=== PATIENT | female | born 2000 | race Two or more races ===

== ENCOUNTER 2024-06-27 22:04 | Emergency (ER) | payer MEDICAID, SELFPAY ==
[2024-06-27 22:05] VITALS: BMI 43.0
[2024-06-27 22:59] VITALS: BP 115/74; PULSE 106; RESP 20; TEMP 37.3; O2SAT 99
--- NOTE | 2024-06-27 23:20 | XR_ITS ---
Examination: CT soft tissue neck, with intravenous contrast. 2-D coronal reconstructions. 2-D sagittal reconstructions. Date and time of exam :June 28, 2024 0327 hrs. Indications: Onset left-sided neck pain today. CTDI: vol (mGy):14.6 DLP: (mGycm):325 Technique: 1.25 mm axial sections of the neck of the obtained. Coronal and sagittal reconstructions have been obtained. Intravenous contrast administered 60 cc Isovue-370. Low dose protocols were performed. One or more of the following dose reduction techniques were used; automated exposure control, adjustment of the mA and/or KV according to patient size, use of iterative reconstruction technique. Findings: Significant maxillary sinus disease Mild soft tissue tonsillar prominence no abscess Symmetrical submandibular glands No pathologic cervical lymphadenopathy Normal larynx The thyroid glands are not enlarged Normal epiglottis Impression: Mild soft tissue tonsillar prominence
--- NOTE | 2024-06-27 23:20 | XR_ITS ---
Examination: CT abdomen with intravenous contrast CT pelvis with intravenous contrast 2-D coronal reconstructions 2-D sagittal reconstructions Date and time of exam:June 28, 2024 0331 hrs. Indications: Onset left-sided abdominal pain beginning 2 weeks ago. CTDI: vol (mGy) 25.7 DLP: (mGycm) 1495 Technique: Multiple axial sections of the abdomen and pelvis have been obtained. 64 slice high-resolution scanner used. 3 mm axial sections have been obtained, post intravenous injection 60 cc Isovue-370 2-D sagittal, coronal reconstructions obtained. Low dose protocols were performed. One or more of the following dose reduction techniques were used; automated exposure control, adjustment of the mA and/or KV according to patient size, use of iterative reconstruction technique. Findings: No focal liver or splenic lesions No gallstones No pancreatic or adrenal mass No renal or ureteral calculi, no hydronephrosis Normal appendix No bowel obstruction This is not a CTA study for assessment of contrast extravasation Mild fluid in the pelvis No bladder mass Impression: No renal or ureteral calculi, no hydronephrosis Normal appendix No bowel obstruction or diverticulitis
--- NOTE | 2024-06-27 23:43 | EDNOTE_ITS ---
ED Back Injury Pain RME/HPI General Chief Complaint: Back Pain/Injury Stated Complaint: LT FLANK/JAW PAIN Time Seen by Provider: 06/27/24 23:19 Arrival date/time: 06/27/24 22:04 24F with history of kidney stones presents to ED with 3 days of L flank pain. Patient denies N/V, dysuria/hematuria, and vaginal bleeding. Separately, 1 day of L neck swelling/tenderness, but denies URI symptoms. Separately, patient has had 3 months of gross red bloody in stool. Limitations: no limitations Related Data Previous Rx's ?Medication ?Instructions ?Recorded ibuprofen 600 mg tablet 600 mg PO Q8H PRN pain #20 t abs 06/16/22 tamsulosin 0.4 mg capsule (Flomax) 0.4 mg PO QDAY #14 caps 06/16/22 ondansetron HCl 4 mg tablet 4 mg PO TID PRN nausea and 07/14/22 vomiting #14 tabs diphenhydramine HCl 25 mg capsule 25 mg PO Q8H PRN all ergic symptoms 11/03/22 (Benadryl) #30 caps amoxicillin 875 mg-potassium 1 tab PO BID 7 days #14 t abs 06/28/24 clavulanate 125 mg tablet hydrocortisone 2.5 % topical cream 1 applic PA QDAY PA N hemorrhoids 06/28/24 with perineal applicator #30 grams (Anusol-HC) Allergies Allergy/AdvReac Type Severity Reaction Status Date / Time No Known Allergies Allergy Verified 02/11/23 18:32 Review of Systems Review of Systems Systems Reviewed: All systems reviewed, normal except as documented Constitutional Constitutional: Reports system reviewed and no additional complaints, except as documented, Denies fever(s) and Denies headache(s) ENT Ears, Nose, Mouth, and Throat: Reports as per HPI, Denies disequilibrium, Denies headache(s) and Reports neck mass Cardiovascular Cardiovascular: Reports system reviewed and no additional complaints, except as documented, Denies chest pain and Denies dyspnea Respiratory Respiratory: Reports system reviewed and no additional complaints, except as documented, Denies cough and Denies dyspnea Gastrointestinal Gastrointestinal: Reports system reviewed and no additional complaints, except as documented, Reports as per HPI, Denies abdominal pain, Reports hematochezia, Denies nausea and Denies vomiting Musculoskeletal Musculoskeletal: Reports as per HPI and Reports back pain Neurologic Neurologic: Reports system reviewed and no additional complaints, except as documented, Denies confusion, Denies disequilibrium and Denies headache(s) Psychiatric Psychiatric: Denies confusion ED Exam General Limitations: Present no limitations General appearance: Present alert and in no apparent distress Head Head exam: Present atraumatic Eye Eye exam: Present normal appearance, PERRL and EOMI ENT ENT exam: Present normal exam, normal oropharynx and mucous membranes moist Neck Neck exam: Present normal inspection, full ROM and trachea midline Chest Chest inspection: Present normal inspection and symmetric chest wall rise Respiratory Respiratory exam: Present normal lung sounds bilaterally Cardiovascular Cardiovascular exam: Present regular rate, normal rhythm and normal heart sounds Abdominal Exam Abdominal exam: Present soft and normal bowel sounds Rectal Exam Rectal exam: Present hemorrhoids Extremities Exam Extremities exam: Present normal inspection and full ROM Back Exam Back exam: Present normal inspection and full ROM Neurological Exam Neurological exam: Present alert, oriented X3 and CN II-XII intact Psychiatric Psychiatric exam: Present normal affect and normal mood Skin Skin exam: Present warm, dry, intact and normal color Course Quality Measures none Orders Category Date Time Status CT Screening NOW Care 06/27/24 23:20 Active Insert IV NOW Care 06/27/24 23:20 Active Occult Blood,Stool (Nursing) NOW Care 06/27/24 23:47 Active Occult Blood,Stool (Nursing) NOW Care 06/28/24 00:[address] abdomen pelvis w con Stat Exams 06/27/24 23:[address] soft tissue neck w con Stat Exams 06/27/24 23:20 Taken CBC Stat Lab 06/27/24 23:47 Completed CMP [Comprehensive Metabolic Panel] Stat Lab 06/27/24 23:47 Completed HCG Qualitative,Urine Stat Lab 06/27/24 23:52 Completed Lactate (Lactic Acid) Stat Lab 06/27/24 23:47 Completed Lipase Stat Lab 06/27/24 23:47 Completed Occult Blood, Stool (LAB) Stat Lab 06/27/24 23:55 Completed Procalcitonin Stat Lab 06/27/24 23:47 Completed Urinalysis, C/S if Indicated Stat Lab 06/27/24 23:52 Completed Ampicillin/Sulbac Inj [Unasyn Inj] 3 gm Med 06/28/24 05:21 Discontinued Sodium Chloride 0.9% (Pop) [NS 0.9% mini bag] 100 ml IV X1 Ketorolac Inj [Toradol Inj] Med 06/28/24 01:41 Discontinued 30 mg IVP X1 ONE Vital Signs Vital signs: Vital Signs Temperature 99.1 F 06/27/24 22:59 Pulse Rate 106 H 06/27/24 22:59 Respiratory Rate 20 06/27/24 22:59 Blood Pressure 115/74 06/27/24 22:59 Pulse Oximetry (%) 99 06/27/24 22:59 Oxygen Delivery Method Room Air 06/27/24 22:59 O2 at 99% on RA and WNLs Back Pain / Injury MDM Narrative MDM Narrative:: 24F with history of kidney stones presents to ED with 3 days of L flank pain. Patient denies N/V, dysuria/hematuria, and vaginal bleeding. Separately, 1 day of L neck swelling/tenderness, but denies URI symptoms. Separately, patient has had 3 months of gross red bloody in stool. Physical exam with forensic identification specialist reveals small external hemorrhoid, but no flank tenderness. Internal exam unremarkable. Patient is afebrile, calm, and alert. Occult blood negative (possible false neg). Moderate leukocytosis of 16k. No an emia. CMP unremarkable. Lipase normal. Procal/lactate normal. UA contaminated but no dehydration, blood, or gross UTI. HCG neg. Ct ab/pelvics reveals some proctitis. CT neck reveal mild tonsillitis but prominent cervical lymph nodes. Counseled will trial course of ABX that should treat both if infections etiology. Counseled if symptoms persist, follow-up with PCP for additional evaluation such as monitoring/biopsy/referral/colonoscopy. Patient data External records reviewed:: [facility] previous records Clinical information provided by:: patient Social determinants that could affect healthcare access:: none Patient has the following chronic illnesses:: none How is presenting disease/condition affected by chronic disease/condition?: no chronic disease Evaluation data The following diagnostics were reviewed and interpreted by me:: lab results and radiology exam(s) Lab and/or radiology exams considered but not ordered:: ordered Interpretation Summary: above Medications / Prescriptions Medications or Prescriptions considered but not ordered:: not ordered Medication administrations:: Medication Administration History Discontinued Medications Ampicillin Sodium/Sulbactam (Sodium 3 gm/ Sodium Chloride) 100 mls @ 200 mls/hr IV X1 ONE Stop: 06/28/24 05:22 Last Admin: 06/28/24 05:35 Dose: 200 mls/hr Documented By: EF Ketorolac Tromethamine (Ketorolac Inj 30 Mg/Ml Vial) 30 mg IVP X1 ONE Stop: 06/28/24 01:42 Last Admin: 06/28/24 01:48 Dose: 30 mg Documented By: ANA n/a Consultations Consultation(s) initiated? (list below): No Diagnosis Differential diagnosis back pain/injury: lumbar radiculopathy, sciatica, strain of lumbar region, renal colic, pyelonephritis, thoracic back pain, AAA, discitis and other (kidney stone, blood in stool, IBD, colon cancer, hemorrhoids, proctit is, cervical adenopathy, tonsillitis) Most likely diagnosis given after review of the tests above:: hemorrhoids, proctitis, cervical adenopathy, tonsillitis Admission Indicated Admission indicated?: not indicated Admission Request Was there a request for admission?: No Disposition Plan Disposition Plan: Discharge Discharge Attestation Discharge Attestation: The patient and all family members were given an opportunity to ask questions and understood the discharge instructions. Discharge instructions specifically effects, indications for sooner follow up or return to the emergency department, and the expected course of current diagnosis. Patient condition: Stable Discharge Plan Plan Patient Disposition: HOME (Self Care) Disposition Comment: Stable Prescriptions/Referrals Prescriptions/Med Rec: New hydrocortisone [Anusol-HC] 2.5 % cream with perineal applicator 1 applic PA QDAY PRN (Reason: hemorrhoids) Qty: 30 0RF amoxicillin-pot clavulanate 875-125 mg tablet 1 tab PO BID 7 Days Qty: 14 0RF No Action ondansetron HCl 4 mg tablet 4 mg PO TID PRN (Reason: nausea and vomiting) Qty: 14 0RF tamsulosin [Flomax] 0.4 mg capsule 0.4 mg PO QDAY Qty: 14 0RF ibuprofen 600 mg tablet 600 mg PO Q8H PRN (Reason: pain) Qty: 20 0RF diphenhydramine HCl [Benadryl] 25 mg capsule 25 mg PO Q8H PRN (Reason: allergic symptoms) Qty: 30 0RF Referrals: No Primary/Family,Physician [Primary Care Provider] - In 1 week Problem List Clinical Impression: Acute tonsillitis, Proctitis, Hemorrhoids, Cervical adenopathy Patient/Caregiver Discharge Instructions Education Materials: Tonsillitis in Adults, Lymphadenopathy, Understanding Colitis, ED Hemorrhoids Additional Instructions: Please follow-up with PCP within 24-48 hours and return immediately if symptoms worsen. If after AB treatment, still have red blood in stool and hemorrhoid treatment isn't working, see PCP for referral to GI. If neck swelling persists after treatment, see PCP for additional monitoring and evaluation. Print Language: Faroese Stand Alone Forms: Patient Portal Info Letter PA/NADER Supervising Physician LOREN/NADER Supervising Physician: Dr. Covarrubias
[2024-06-27 23:58] LABS: Collection Type, Urine Clean Catch
[2024-06-28 00:04] LABS: Lactate (Lactic Acid) 1.8 mMol/L (0.4-2.0)
[2024-06-28 00:10] LABS: HCG Qualitative,Urine Negative
[2024-06-28 00:10] LABS: OBS Performed By PINOR; OBS QC OK? Yes; Occult Blood, Stool Negative (Negative)
[2024-06-28 00:14] LABS: Basophils % (Auto) 0 % (0-2.5); Eosinophils % (Auto) 0 % (0-10); Hematocrit 37.3 % (36.0-46.0); Hemoglobin 12.1 g/dL (12.0-16.0); Immature Granulocytes % (Auto) 1 % (0-0); Immature Granulocytes Auto 0.09 Thou/mm3 (0.00-0.00); Lymphocytes % (Auto) 26 % (10-50); Mean Corpuscular HGB Conc 32.4 g/dl (31.0-37.0); Mean Corpuscular Hemoglobin 25.9 pg (25.0-35.0); Mean Corpuscular Volume 80 fL (80-100); Monocytes # (Auto) 0.8 Thou/mm3 (0.0-0.8); Monocytes % (Auto) 5 % (0-12); Neutrophils # (Auto) 10.7 Thou/mm3 (1.8-7.7); Neutrophils % (Auto) 68 % (37-80); Nucleated Red Blood Cell % 0 /100 WBC (0); Platelet Count 343 Thou/mm3 (140-440); RDW Standard Deviation 42.5 fL (36.4-46.3); Red Blood Count 4.67 Miln/mm3 (4.00-5.20); White Blood Count 15.7 Thou/mm3 (3.6-11.0)
[2024-06-28 00:19] LABS: Bacteria,Urine Rare; Bilirubin,Urine Negative (Negative); Blood,Urine Negative (Negative); Calcium Oxalate Crystals,Urine Rare; Clarity,Urine Clear (Clear/Hazy); Color,Urine Lt-Yellow (Lt Yel-Yel); Culture Indicated,Urine Not Indicated; Glucose, Urine Negative (Negative); Ketones,Urine Negative (Negative); Leukocyte Esterase,Urine Negative (Negative); Nitrite,Urine Negative (Negative); Protein,Urine Trace (Neg - Trace); RBC,Urine < 1 /hpf (0-3); Specific Gravity,Urine 1.031 (1.001-1.035); Squamous Epithelial Cell,Urine 14 /hpf (0-5); Urobilinogen,Urine Negative mg/dL (0.0-1.0); WBC,Urine 1 /hpf (0-5)
[2024-06-28 00:38] LABS: Alanine Aminotransferase 19 U/L (10-49); Albumin, Serum 4.9 gm/dL (3.5-5.0); Albumin/Globulin Ratio 1.4 (1.2-2.2); Alkaline Phosphatase 101 U/L (46-116); Anion Gap 10 (7-16); Aspartate Amino Transferase 30 U/L (0-34); BUN/Creatinine Ratio 13 Ratio (12-20); Bilirubin,Total 0.3 mg/dL (0.3-1.2); Blood Urea Nitrogen 10 mg/dL (9-23); Calcium 9.8 mg/dL (8.3-10.6); Calcium (Corrected) 9.8 mg/dL (8.5-10.1); Carbon Dioxide 25.4 mMol/L (20.0-31.0); Chloride 106 mMol/L (98-107); Creatinine (Component) 0.8 mg/dL (0.6-1.3); Estimated Creatinine Clearance 116.1 mL/min (>60); Globulin 3.5 gm/dL (2.3-3.5); Glucose 124 mg/dL (74-106); Lipase 37 U/L (12-53); Osmolality,Calculated 281 (275-295); Potassium 3.4 mMol/L (3.4-5.1); Procalcitonin < 0.04 ng/ml (0.0-0.49); Sodium 141 mMol/L (136-145); Total Protein 8.4 gm/dL (5.7-8.2); eGFR > 60 See Note
[2024-06-28 00:57] VITALS: BP 97/70; PULSE 88; RESP 18; TEMP 37.1; O2SAT 98
[2024-06-28] MEDS: KETOROLAC INJ 30 MG/ML VIAL IVP (01:48)
[2024-06-28 02:24] VITALS: BP 117/80; PULSE 88; RESP 18; TEMP 36.6; O2SAT 100
--- NOTE | 2024-06-28 04:54 | PRELIM_ITS ---
CT scan of the neck with intravenous contrast (axial sections with sagittal and coronal reformats) June 28, 2024 0327 hours Clinical History: Left neck swelling. Comparison: No prior study is available for comparison. Findings: There is mild enlargement of the palatine tonsils. No airway narrowing or loculated fluid collection to suggest abscess. There are prominent deep cervical lymph nodes, the largest measuring 1.1 cm on the left. The nasopharynx, hypopharynx, supraglottic and infraglottic larynx, vocal cords and upper trachea are unremarkable. The epiglottis and aryepiglottic folds appear unremarkable. No enhancing lesion or fluid collection is identified. The vessels of the neck are well opacified. No filling defect is seen. The superficial soft tissues of the neck are unremarkable. The osseous structures are unremarkable. Impression: 1. No evidence of neck mass or abscess. 2. Findings suggestive of mild tonsillitis. Recommend clinical correlation. 3. Prominent deep cervical lymph nodes. Report Electronically Signed By: Seb Ferraro 06/28/2024 4:54:13 AM [EST]
--- NOTE | 2024-06-28 04:56 | PRELIM_ITS ---
CT scan of the abdomen and pelvis with intravenous contrast (axial sections with sagittal and coronal reformats) June 28, 2024 0331 hours Clinical History: Left sided abdominal pain; bloody stools 3 months. Comparison: No prior study is available for comparison. Findings: The evaluation is limited due to single delayed phase. The lung bases are clear. The liver, gallbladder, pancreas, spleen, kidneys and adrenals are unremarkable. No contrast extravasation in the stomach, small or large bowel loops to suggest active gastrointestinal hemorrhage at the time of examination. No evidence of bowel obstruction. The appendix is within normal limits. There is mild rectal wall thickening with perirectal fat stranding. The urinary bladder is unremarkable. The uterus and adnexa are unremarkable. There is no free air. Trace free fluid is seen in the pelvis, likely physiologic. Calcific densities are seen in the pelvis, likely representing phleboliths. There is an 8 mm left Bartholin gland cyst. The osseous structures are unremarkable. Impression: Limited evaluation as described. 1. No evidence of bowel obstruction, mass, free air or abscess. 2. No contrast extravasation to indicate gastrointestinal hemorrhage at the time of examination ( limited single phase delayed imaging) 3. Findings suggestive of mild proctitis. 4. Other findings as described above. Report Electronically Signed By: Seb Ferraro 06/28/2024 4:55:12 AM [EST]
[2024-06-28 05:03] VITALS: BP 121/78; PULSE 95; RESP 16; TEMP 36.6; O2SAT 99
[2024-06-28] MEDS: AMPICILLIN/SULBAC INJ 3 GM in SODIUM CHLORIDE 0.9% (POP) 100 ML IV (05:35)
[2024-06-28 06:36] VITALS: BP 106/70; PULSE 87; RESP 17; TEMP 36.8; O2SAT 99
== END 2024-06-28 06:37 | disposition home or self-care (01) ==
PROVIDERS: Physician Assistant; Emergency Provider Emergency Medicine
DX: J03.90 Acute tonsillitis, unspecified (principal); K64.9 Unspecified hemorrhoids; R59.0 Localized enlarged lymph nodes
CPT/HCPCS: 36415; 70491; 74177; 80053; 81001; 81025; 82270; 83605; 83690; 84145; 85025; 96365; 96375; 99285; A4649; J0295; J1885; Q9967

== ENCOUNTER 2024-07-31 08:20 | Day surgery (SDC) | payer MEDICAID, SELFPAY ==
[2024-07-30 11:59] VITALS: BMI 45.3
[2024-07-31] VITALS (11 sets, daily range): BP systolic 108–127; BP diastolic 64–89; PULSE 72–89; RESP 15–21; TEMP 36.3–36.8; O2SAT 96–100; BMI 43.8
[2024-07-31 09:24] LABS: HCG Qualitative,Urine Negative
[2024-07-31] MEDS: RINGERS LACTATED 1000 ML 1,000 ML 125 ML IV (11:08)
[2024-07-31] MEDS: DiphenhydrAMINE INJ 50 MG/ML VIAL 25 MG IV (11:08)
[2024-07-31] MEDS: fentaNYL CIT INJ 50 mCg/ML AMP 2ML (ASD USE ONLY) IV (11:10)
[2024-07-31] MEDS: MIDAZOLAM INJ 1 MG/ML VIAL 2 ML (ASD USE ONLY) 2 MG IV (11:15)
== END 2024-07-31 12:30 | disposition home or self-care (01) ==
PROVIDERS: PCP Family Medicine; Referring Provider Internal Medicine Gastroenterology; Visit Provider Internal Medicine Gastroenterology
PROC: 0DBE8ZX Excision of Large Intestine, Via Natural or Artificial Opening Endoscopic, Diagnostic (ICD-10-PCS; CPT 45380; principal; 2024-07-31 09:45)
DX: K52.9 Noninfective gastroenteritis and colitis, unspecified (principal); K64.8 Other hemorrhoids; K31.89 Other diseases of stomach and duodenum
CPT/HCPCS: 45380; 81025; J1200; J2250; J3010; J7120

== ENCOUNTER 2024-12-30 19:33 | Emergency (ER) | payer MEDICAID, SELFPAY ==
[2024-12-30 19:33] VITALS: BMI 40.6
[2024-12-30 20:34] VITALS: BP 108/76; PULSE 78; RESP 16; TEMP 37; O2SAT 98
--- NOTE | 2024-12-30 20:45 | EDRME_ITS ---
Rapid Medical Screening Exam [facility] Arrival date/time: 12/30/24 19:33 24F with history of marijuana use presents to ED with 1 day of RUQ/epigastric pain and N/V. Patient denies dysuria, diarrhea, and is not on her cycle. Chief Complaint: Abdominal Pain Vital signs: Vital Signs Temperature 98.6 F 12/30/24 20:34 Pulse Rate 78 12/30/24 20:34 Respiratory Rate 16 12/30/24 20:34 Blood Pressure 108/76 12/30/24 20:34 Pulse Oximetry (%) 98 12/30/24 20:34 Oxygen Delivery Method Room Air 12/30/24 20:34
[2024-12-30 21:09] LABS: Collection Type, Urine Clean Catch
[2024-12-30 21:11] LABS: Basophils # (Auto) 0.0 Thou/mm3 (0.0-0.2); Basophils % (Auto) 0 % (0-2.5); Eosinophils # (Auto) 0.0 Thou/mm3 (0.0-0.5); Eosinophils % (Auto) 0 % (0-10); Hematocrit 35.5 % (36.0-46.0); Hemoglobin 11.7 g/dL (12.0-16.0); Immature Granulocytes Auto 0.01 Thou/mm3 (0.00-0.00); Lymphocytes # (Auto) 3.0 Thou/mm3 (1.0-4.8); Lymphocytes % (Auto) 32 % (10-50); Mean Corpuscular HGB Conc 33.0 g/dl (31.0-37.0); Mean Corpuscular Hemoglobin 26.5 pg (25.0-35.0); Mean Corpuscular Volume 81 fL (80-100); Monocytes # (Auto) 0.6 Thou/mm3 (0.0-0.8); Monocytes % (Auto) 7 % (0-12); Neutrophils # (Auto) 5.8 Thou/mm3 (1.8-7.7); Neutrophils % (Auto) 61 % (37-80); Nucleated Red Blood Cell # 0.00 Thou/mm3 (0.00-0.00); Nucleated Red Blood Cell % 0 /100 WBC (0); Platelet Count 392 Thou/mm3 (140-440); RDW Standard Deviation 42.6 fL (36.4-46.3); Red Blood Count 4.41 Miln/mm3 (4.00-5.20); White Blood Count 9.4 Thou/mm3 (3.6-11.0)
[2024-12-30 21:15] LABS: HCG Qualitative,Urine Negative
[2024-12-30 21:23] LABS: Bacteria,Urine 1+; Bilirubin,Urine Negative (Negative); Blood,Urine Negative (Negative); Clarity,Urine Turbid (Clear/Hazy); Color,Urine Yellow (Lt Yel-Yel); Culture Indicated,Urine Contaminated; Glucose, Urine Negative (Negative); Ketones,Urine Negative (Negative); Leukocyte Esterase,Urine Positive (Negative); Nitrite,Urine Negative (Negative); PH,Urine 6.0 (5.0-7.0); Protein,Urine 1+ (Neg - Trace); RBC,Urine 8 /hpf (0-3); Specific Gravity,Urine 1.033 (1.001-1.035); Squamous Epithelial Cell,Urine 17 /hpf (0-5); Urobilinogen,Urine Negative mg/dL (0.0-1.0); WBC,Urine 55 /hpf (0-5)
[2024-12-30] MEDS: ONDANSETRON ODT 4 MG TABRAP PO (21:24)
[2024-12-30] MEDS: FAMOTIDINE 20 MG TABLET 40 MG PO (21:24)
[2024-12-30 21:29] LABS: Alanine Aminotransferase 13 U/L (10-49); Albumin, Serum 4.9 gm/dL (3.5-5.0); Albumin/Globulin Ratio 1.9 (1.2-2.2); Alkaline Phosphatase 83 U/L (46-116); Anion Gap 11 (7-16); Aspartate Amino Transferase 25 U/L (0-34); BUN/Creatinine Ratio 8 Ratio (12-20); Bilirubin,Total 0.4 mg/dL (0.3-1.2); Blood Urea Nitrogen 7 mg/dL (9-23); Calcium 9.5 mg/dL (8.3-10.6); Calcium (Corrected) 9.5 mg/dL (8.5-10.1); Carbon Dioxide 25.3 mMol/L (20.0-31.0); Chloride 105 mMol/L (98-107); Creatinine (Component) 0.9 mg/dL (0.6-1.3); Estimated Creatinine Clearance 103.9 mL/min (>60); Globulin 2.6 gm/dL (2.3-3.5); Glucose 82 mg/dL (74-106); Lipase 27 U/L (12-53); Osmolality,Calculated 278 (275-295); Potassium 3.7 mMol/L (3.4-5.1); Sodium 141 mMol/L (136-145); Total Protein 7.5 gm/dL (5.7-8.2); eGFR > 60 See Note
[2024-12-30 22:59] VITALS: BP 103/65; PULSE 90; RESP 18; TEMP 37.1; O2SAT 99
--- NOTE | 2024-12-31 00:04 | EDNOTE_ITS ---
ED Abdominal Pain RME/HPI General Chief Complaint: Abdominal Pain Stated complaint: UPPER ABDOMINAL PAIN Arrival date/time: 12/30/24 19:33 RME / HPI RME / HPI narrative: 12/30/24 19:33 24F with history of marijuana use presents to ED with 1 day of RUQ/epigastric pain and N/V. Patient denies dysuria, diarrhea, and is not on her cycle. Dr. Sauer?s Main ED Evaluation: 24yo female presents to the ED for a chief complaint of right-sided abdominal pain that radiates to her lower back x 1500. Patient describes her pain as burning in nature. Patient denies any fever, chills, dysuria, frequency, urgency, nausea, vomiting, or any other associated symptoms. Patient notes she has a history of recurrent UTIs. NKA. Related Data Home Medications ?Medication ?Instructions ?Recorded ?Confirmed ferrous sulfate 325 mg (65 mg 325 mg PO QDAY 07/30/24 07/31/24 iron) tablet (FeroSul) Previous Rx's ?Medication ?Instructions ?Recorded cephalexin 500 mg capsule 1,000 mg (2 x 500 mg) PO BID 5 12/31/24 days #20 caps Allergies Allergy/AdvReac Type Severity Reaction Status Date / Time No Known Allergies Allergy Verified 07/31/24 09:00 Review of Systems Review of Systems Systems Reviewed: All systems reviewed, normal except as documented Past Medical History Past Medical History NEUROLOGIC: Positive Neurological Disorders and Head Trauma; Negative Seizures CARDIAC: Negative Cardiac Disorders, Congestive Heart Failure, Edema or Cellulitis RESPIRATORY: Negative Chronic Obstructive Pulmonary Disease (COPD), Asthma, Tuberculosis or Sleep Apnea GASTROINTESTINAL: Negative Gastrointestinal Disorders (rectal bleeding, abd pain) or Hepatitis GENITOURINARY: Negative Genitourinary Disorders or Renal Disease REPRODUCTIVE: Negative Previous Pregnancies MUSCULOSKELETAL: Positive Musculoskeletal Disorders and Fractures (right elbow) ENT: Positive Head Trauma ENDOCRINE: Negative Endocrine Disorders, Diabetes Mellitus Type 1 or Diabetes Mellitus Type 2 HEMATOLOGIC: Negative Blood Disorders or Sickle Cell Disease PSYCHO/SOCIAL: Positive Depression and Anxiety OTHER HISTORY: Negative Hospitalization, Autoimmune Disease, Shingles, Falls, Blood Transfusions, Blood Transfusion Reaction, Anesthesia Reactions, Chicken Pox, Measles, Mumps or Cancer Family History FAMILY HISTORY: Positive Family Respiratory Disorders, Family Cardiac Disorders and Family Surgery; Negative Family Psychiatric Problems, Family Gastrointestinal Problems, Family Cancer or Family Anesthesia Reaction Surgical History SURGICAL: Negative Pacemaker Social History SMOKING STATUS: Never smoker ED Exam Narrative Physical exam: Generally patient is alert no obvious distress, heart regular rate and rhythm, lungs clear to auscultation equal bilaterally, abdomen soft bowel sounds present nondistended suprapubic abdominal tenderness without obvious rebound. Musculoskeletal exam showed no obvious costovertebral angle tenderness. Course Quality Measures none Orders Category Date Time Status CBC Stat Lab 12/30/24 20:51 Completed CMP [Comprehensive Metabolic Panel] Stat Lab 12/30/24 20:51 Completed HCG Qualitative,Urine Stat Lab 12/30/24 21:05 Completed Lipase Stat Lab 12/30/24 20:51 Completed Urinalysis, C/S if Indicated Stat Lab 12/30/24 21:05 Completed Famotidine [Pepcid] Med 12/30/24 20:45 Discontinued 40 mg PO X1 ONE Ondansetron Odt [Zofran Odt] Med 12/30/24 20:45 Discontinued 4 mg PO X1 ONE Vital Signs Vital signs: Vital Signs Temperature 98.6 F 12/30/24 20:34 Pulse Rate 78 12/30/24 20:34 Respiratory Rate 16 12/30/24 20:34 Blood Pressure 108/76 12/30/24 20:34 Pulse Oximetry (%) 98 12/30/24 20:34 Oxygen Delivery Method Room Air 12/30/24 20:34 Abdominal Pain MDM MDM Narrative MDM Narrative:: Scribe Attestation: 12/31/24 - Mary Carrion am scribing for and in the presence of Dr. Sauer. There is no leukocytosis. No fever. Urine is infected. Patient has had multiple urinary tract infections in the past. She was counseled on the need to always urinate after having sexual intercourse and after a bowel movement to always wipe from the front to the back. She is to take the cephalexin as prescribed. Follow-up with your doctor for further treatment and evaluation. Patient data External records reviewed:: [facility] previous records (Per chart review, patient was seen here on 08/26/22 for abdominal pain.) Clinical information provided by:: patient Social determinants that could affect healthcare access:: none Patient has the following chronic illnesses:: none How is presenting disease/condition affected by chronic disease/condition?: no chronic disease Evaluation data The following diagnostics were reviewed and interpreted by me:: lab results Lab and/or radiology exams considered but not ordered:: none Interpretation Summary: See MDM. Medications / Prescriptions Medications or Prescriptions considered but not ordered:: none Medication administrations:: Medication Administration History Discontinued Medications Famotidine (Famotidine 20 Mg Tablet) 40 mg PO X1 ONE Stop: 12/30/24 20:46 Last Admin: 12/30/24 21:24 Dose: 40 mg Documented By: KARMA Ondansetron HCl (Ondansetron Odt 4 Mg Tabrap) 4 mg PO X1 ONE; Protocol Stop: 12/30/24 20:46 Last Admin: 12/30/24 21:24 Dose: 4 mg Documented By: KARMA see above Consultations Consultation(s) initiated? (list below): No Diagnosis Differential diagnosis abdominal pain: other (See MDM) Most likely diagnosis given after review of the tests above:: see clinical impression below Admission Indicated Admission indicated?: not indicated Admission Request Was there a request for admission?: No Disposition Plan Disposition Plan: Discharge Discharge Attestation Discharge Attestation: The patient and all family members were given an opportunity to ask questions and understood the discharge instructions. Discharge instructions specifically effects, indications for sooner follow up or return to the emergency department, and the expected course of current diagnosis. Patient condition: Stable Discharge Plan Plan Patient Disposition: HOME (Self Care) Prescriptions/Referrals Prescriptions/Med Rec: New cephalexin 500 mg capsule 1,000 mg PO BID 5 Days Qty: 20 0RF No Action ferrous sulfate [FeroSul] 325 mg (65 mg iron) tablet 325 mg PO QDAY Patient Comments: TAKE 1 TABLET BY MOUTH DAILY Referrals: Erik Elliott MD [Primary Care Provider, Family Practice] - In 1 week Problem List Clinical Impression: UTI (urinary tract infection) Patient/Caregiver Discharge Instructions Education Materials: Hematuria: Possible Causes, Urinary Tract Infections in Women Additional Instructions: Take the antibiotic as prescribed. Tylenol and ibuprofen for pain. Follow-up with your doctor for further treatment and evaluation. Print Language: Mosotho Stand Alone Forms: Juliet Award Info., Patient Portal Info Letter
[2024-12-31 00:37] VITALS: BP 105/65; PULSE 82; RESP 18; TEMP 37; O2SAT 99
== END 2024-12-31 00:38 | disposition home or self-care (01) ==
PROVIDERS: Physician Assistant; Emergency Provider Emergency Medicine; PCP Family Medicine; Referring Provider Emergency Medicine
DX: N39.0 Urinary tract infection, site not specified (principal)
CPT/HCPCS: 36415; 80053; 81001; 81025; 83690; 85025; 99281; Q0162; A9270